=== PATIENT | female | born 1970 ===

== ENCOUNTER 2018-10-01 11:23 | Inpatient (IN) | payer BC, OTHER ==
[~2018-10-01] VITALS: Ht 165.1 cm; Wt 79.1 kg
[~2018-10-01 11:23] MED LIST: BUPIVACAINE/PF-EPI 0.5% 1:200K ONE; IBUP-1223 PO; PHEN37.53 PO; TRAZ50TA66 PO
[2018-10-01] MEDS ORDERED: LACTATED RINGERS 1,000 ML IV SCH (12:02)
[2018-10-01] MEDS ORDERED: CBD OIL TP (12:04)
[2018-10-01] MEDS ORDERED: LIDOCAINE-MPF 1%, 2ML INFIL ONE (12:30)
[2018-10-01] MEDS ORDERED: SUCCINYLCHOLINE 20 MG/ML, 10ML ONE (14:46)
[2018-10-01] MEDS ORDERED: PROPOFOL 10 MG/ML, 20ML ONE (14:46)
[2018-10-01] MEDS ORDERED: DEXAMETHASONE 4 MG/ML, 1ML ONE (14:46)
[2018-10-01] MEDS ORDERED: PROPOFOL 10 MG/ML, 50ML ONE (14:46)
[2018-10-01] MEDS ORDERED: SCOPOLAMINE PATCH, 1.5MG PATCH.TD72 TD ONE (14:46)
[2018-10-01] MEDS ORDERED: ONDANSETRON 2MG/ML, 2ML ONE (14:46)
[2018-10-01] MEDS ORDERED: FENTANYL PF 250 MCG/5ML ONE (14:48)
[2018-10-01] MEDS ORDERED: MIDAZOLAM 1 MG/ML, 2ML ONE (14:48)
[2018-10-01] MEDS ORDERED: ACETAMINOPHEN 325 MG TABLET PO PRN (15:30)
[2018-10-01] MEDS ORDERED: DIAZEPAM 5 MG/ML, 2ML IVPush PRN (15:30)
[2018-10-01] MEDS ORDERED: OXYcodone 5 MG/5 ML ORAL.SOL UDC PO PRN (15:30)
[2018-10-01] MEDS ORDERED: PROMETHAZINE 25 MG/ML, 1ML IV PRN (15:30)
[2018-10-01] MEDS ORDERED: LABETALOL 5MG/ML, 20ML IV PRN (15:30)
[2018-10-01] MEDS ORDERED: ALBUTEROL SULFATE 2.5 MG/3 ML NPPB PRN (15:30)
[2018-10-01] MEDS ORDERED: hydrALAzine 20 MG/ML, 1ML IV PRN ×2 (15:30→18:00)
[2018-10-01] MEDS ORDERED: HYDROmorphone 2 MG/ML, 1ML IVPush PRN (15:30)
[2018-10-01] MEDS ORDERED: MEPERIDINE/PF 25MG/0.5ML IVPush PRN (15:30)
[2018-10-01] MEDS ORDERED: PROMETHAZINE 25 MG/ML, 1ML ONE (16:29)
[2018-10-01] MEDS ORDERED: FENTANYL PF 100 MCG/2ML ONE (16:30)
[2018-10-01] MEDS ORDERED: OXYcodone 5 MG/5 ML ORAL.SOL UDC ONE (16:30)
[2018-10-01] MEDS: FENTANYL PF 100 MCG/2ML IV PRN ×2 (16:35→17:10)
[2018-10-01] MEDS ORDERED: hydrALAzine 20 MG/ML, 1ML ONE (16:35)
[2018-10-01] MEDS ORDERED: MEPERIDINE/PF 25MG/ML,1ML ONE (17:18)
[2018-10-01] MEDS ORDERED: ONDANSETRON 2MG/ML, 2ML IV PRN (18:00)
[2018-10-01] MEDS ORDERED: ACETAMINOPHEN 650 MG SUPP PR PRN (18:00)
[2018-10-01] MEDS ORDERED: HYDROcodone/APAP 5/325 TABLET PO PRN (18:00)
[2018-10-01 18:05] VITALS: BP 127/85
[2018-10-01 19:50] VITALS: BP 130/82
[2018-10-01] MEDS ORDERED: TRAZODONE 50MG TABLET PO SCH (21:00)
[2018-10-01] MEDS: ACETAMINOPHEN 325 MG TABLET PO PRN (21:40)
[2018-10-01] MEDS: CALCIUM/VITAMIN D3 250-125 TABLET PO SCH (21:41)
[2018-10-02 00:05] VITALS: BP 111/72
[2018-10-02 04:13] VITALS: BP 101/67
[2018-10-02] MEDS: ACETAMINOPHEN 325 MG TABLET PO PRN (04:17)
[2018-10-02 07:20] VITALS: BP 128/81
[2018-10-02 08:10] VITALS: BP 119/78
[2018-10-02] MEDS: CALCIUM/VITAMIN D3 250-125 TABLET PO SCH (08:21)
[2018-10-02] MEDS ORDERED: PHENTERMINE 37.5 MG HOMEMEDPO SCH (09:00)
[2018-10-02] MEDS ORDERED: HYDR-3240 PO (10:03)
[2018-10-02] MEDS ORDERED: LEVO125T PO (10:04)
== END 2018-10-02 10:36 | disposition home or self-care (01) | DRG 627 ==
LOC: OUT 11:23 → 4NOR 17:50 → OUT 18:21 → DCLOUNGE 10-02 10:24
PROVIDERS: ADMIT Surgery; ATTEND Surgery
PROC: 4A10X4G Monitoring of Central Nervous Electrical Activity, Intraoperative, External Approach (ICD-10-PCS; 2018-10-01)
PROC: 0GTK0ZZ Resection of Thyroid Gland, Open Approach (ICD-10-PCS; principal; 2018-10-01 13:00)
DX: E04.2 Nontoxic multinodular goiter (principal); F41.9 Anxiety disorder, unspecified; G43.909 Migraine, unspecified, not intractable, without status migrainosus; Z88.5 Allergy status to narcotic agent; Z88.8 Allergy status to other drugs, medicaments and biological substances; Z91.041 Radiographic dye allergy status; Z91.040 Latex allergy status; Z90.49 Acquired absence of other specified parts of digestive tract; Z90.710 Acquired absence of both cervix and uterus
CPT/HCPCS: 36415; 82310; 83970; 88307; G0378; J1100; J2175; J2250; J2405; J2550; J2704; J3010; J3490; C1760; J0330; J0360; J7120